=== PATIENT | male | born 1965 | race Caucasian/White ===

== ENCOUNTER 2019-03-25 12:00 | Observation (INO) | payer OTHER ==
[~2019-03-25] VITALS: Ht 175.3 cm; Wt 122.0 kg
[~2019-03-25 12:00] MED LIST: ARNUITY ELLIP100 MCG IH; CRUTCH1 EACH MC; FLEXERIL PO; NORCO 5-325 TA1 EACH PO; PREDNISONE 10 M10 M1 PO; QVAR; TESSALON200 MG PO; VENTOLIN HFA INH8 GM; ZPAK PO
[2019-03-25 16:29] VITALS: BP 157/76
[2019-03-25] MEDS ORDERED: ALEVE220 M1 PO (18:14)
[2019-03-25 19:39] LABS: ABSOLUTE BASOPHILS 0.1 thou/uL (0.0-0.2); ABSOLUTE EOSINOPHILS 0.1 thou/uL (0.0-0.7); ABSOLUTE LYMPHOCYTES 1.3 thou/uL (0.8-5.3); ABSOLUTE MONOCYTES 1.1 thou/uL (0.0-1.2); ABSOLUTE NEUTROPHILS 6.8 thou/uL (1.6-8.1); BASOPHILS 0.9 %; EOSINOPHILS 1.5 %; HEMATOCRIT 40.9 % (42.0-52.0); HEMOGLOBIN 14.1 gm/dL (14.0-18.0); LYMPHOCYTES 13.6 %; MCH 29.6 pg (26.0-34.0); MCHC 34.4 g/dL (28.0-37.0); MCV 85.9 fL (80.0-100.0); MONOCYTES 11.7 %; MPV 10.9 fl. (7.2-11.1); NUCLEATED RBCS 0 /100WBC; PLATELET COUNT* 119 thou/uL (150-400); POLYS 72.3 %; RBC 4.76 mil/uL (4.50-6.00); RDW-CV 13.4 % (10.5-14.5); WBC 9.4 thou/uL (4.0-11.0)
[2019-03-25 19:54] LABS: ALBUMIN 3.7 g/dL (3.4-5.0); CALCIUM 8.7 mg/dL (8.5-10.1); CREATININE 1.2 mg/dL (0.6-1.3); PHOSPHORUS* 3.9 mg/dL (2.5-4.9); TOTAL BILIRUBIN 0.8 mg/dL (<0.1-1.0)
[2019-03-25 20:00] VITALS: BP 130/77
--- NOTE | 2019-03-25 20:08 | NUR ---
PATIENT AWAKE IN BED. PATIENT AMBULATED IN ROOM INDEPEDENTLY. ALL SAFETY MEASURES MAINTAINED. DIFFICULTY PLACING IV CAUSING FLUIDS AND PAIN MEDICATION DELAY. PATIENT DECLINED WARM COMPRESS. PATIENT REPORTS QUIET ENVIROMENT AND RESTING IN BED DID HELP WITH PAIN SLIGHTLY.
[2019-03-26 01:17] LABS: URINE BILIRUBIN NEGATIVE (Negative); URINE BLOOD NEGATIVE (Negative); URINE CLARITY CLEAR; URINE COLOR YELLOW; URINE GLUCOSE-RANDOM NEGATIVE (Negative); URINE KETONES 2+ (Negative); URINE LEUKOCYTES-REFLEX NEGATIVE (Negative); URINE NITRITE-REFLEX NEGATIVE (Negative); URINE PROTEIN NEGATIVE (Negative); URINE UROBILINOGEN 0.2 E.U./dl (0.2-1.0)
--- NOTE | 2019-03-26 07:06 | NUR ---
Alert and oriented x 4. He has had abdominal pain mostly on his left side. His lipase was 2045 at admission. He has NS running at 150mls/hr and he has been up independently. Had pain meds x 1. He has slept.
[2019-03-26 08:00] VITALS: BP 140/91
--- NOTE | 2019-03-26 11:12 | NUR ---
Nutrition: Pt admitted with acute pancreatitis. No N/V/D. Wt: 269#. Labs: lipase 2045, BG ok, alb 3.7. NS @ 150cc. Currently NPO. Will follow per protocol. Mild risk at this time. Hopeful for timely diet advancement and tolerance. F/u 03/29/19.
--- NOTE | 2019-03-26 14:47 | NUR ---
CM ASESSMENT: PT LIVES AT HOME WITH HIS AND SON. PT IS INDEPENDENT WITH ADLS. HE WORKS. HE DENIES NEED FOR DME OR HH. WILL CONTINUE TO FOLLOW IF NEEDED
[2019-03-26 16:22] VITALS: BP 113/67
--- NOTE | 2019-03-26 20:11 | NUR ---
ASSUMED CARE AT 0730. ALERT ORIENTED. PLEASANT COOPERATIVE. HX OF PANCREATITIS DIVERTICULITIS. MEDICATED X 1 FOR LLQ ABDOMINAL PAIN WITH RELIEF STATED. IV INFUSING AT 150CC/HR RT. HAND FOREARM. UP AD JEFF IN ROOM AND HAD CLEAR LIQUIDS AFTER GI SAW PT. HERE THIS AFTERNOON VISITING IN ROOM. HOURLY ROUNDING COMPLETED.
[2019-03-26 21:05] VITALS: BP 125/75
--- NOTE | 2019-03-26 21:05 | NUR ---
RESTING QUIETLY IN BED AND WATCHING TV. DENIES DISCOMFORT. IV FLUIDS INFUSING PER ORDER. CALL LIGHT WITHIN REACH.
[2019-03-27 04:32] LABS: HEMATOCRIT 39.2 % (42.0-52.0); HEMOGLOBIN 13.3 gm/dL (14.0-18.0); MCH 29.4 pg (26.0-34.0); MCHC 33.9 g/dL (28.0-37.0); MCV 86.9 fL (80.0-100.0); MPV 10.7 fl. (7.2-11.1); RBC 4.51 mil/uL (4.50-6.00); RDW-CV 13.4 % (10.5-14.5); WBC 6.9 thou/uL (4.0-11.0)
[2019-03-27 04:51] LABS: ALBUMIN 3.2 g/dL (3.4-5.0); POTASSIUM 4.3 mmol/L (3.5-5.1); TOTAL BILIRUBIN 0.6 mg/dL (<0.1-1.0); TOTAL PROTEIN 6.5 g/dL (6.4-8.2)
--- NOTE | 2019-03-27 05:13 | NUR ---
RESTED QUIETLY. HOURLY ROUNDING IN PROGRESS.
[2019-03-27 08:37] VITALS: BP 128/83
[2019-03-27 10:15] VITALS: BP 128/83
--- NOTE | 2019-03-27 15:27 | NUR ---
ASSUMED CARE OF PT AROUND 0730 THIS AM. REFER TO ASSESSMENT. PT ADVANCED TO HEART HEALTHY DIET FOR LUNCH. TOLERATED ALTHOUGH REPORTS MILD ABDOMINAL PAIN AFTERWARDS. PHYSICIAN NOTIFIED AND STATES TO TAKE TYLENOL AND IBUPROFEN AT HOME FOR MILD ABDOMINAL PAIN. PT OK TO DC HOME WITH ORDERS TO FOLLOW UP WITH GI IN ABOUT TWO WEEKS. NO OTHER CONCERNS AT THIS TIME.
--- NOTE | 2019-03-30 12:24 | CON ---
[address] [address] CONSULTATION Name: CHANTELLE PHILLIP III Room: [address] Sina Lee#: [id number] Admission: 03/25/19 Attend Phys: Jayson Ward Discharge: 03/27/19 Date of : 65 Report #: [id number] THIS REPORT FOR: //name// cc: Rebekah Duarte Maggie M. DO THIS REPORT FOR: //name// CC: Rebekah Ramirez DICTATED BY: Mirella Lanier POLEYARD SUPERVISOR DATE OF SERVICE: 03/26/2019 Please note at the time of this dictation, the patient was seen and physically examined by myself. REASON FOR CONSULTATION: Abdominal pain, pancreatitis and diverticulitis. HISTORY OF PRESENT ILLNESS: This 53-year-old male who presented to the Emergency Room with having a 2-day history after eating a sandwich at lunch earlier in the week, he started developing some left-sided abdominal pain and that he states that the pain got worse after eating. He did go see his PCP the following day and when he did, she ordered a CAT scan and told him to stay at the hospital until that was read and then he was admitted after that due to those findings. The patient denies any alcohol abuse. He has had no recent medications that he has ingested including antibiotics or steroids. He does take an Aleve 1 or 2 once or twice a week. Other than that, his bowels move daily, soft and formed. He states he at least moves once a day, most often twice a day. He has not noticed any bright red blood or melena. However, when his abdominal pain started, he states he did not have a bowel movement like he normally does for the last 2 days. The patient has never had a colonoscopy. ALLERGIES: No known drug allergies. MEDICATIONS: From home are his albuterol inhaler, fluticasone and Aleve. PAST MEDICAL HISTORY: Would have been his asthma. PAST SURGICAL HISTORY: Appendectomy, exploratory laparotomy at age 27. FAMILY HISTORY: Negative for any GI or female cancers. SOCIAL HISTORY: Denies any alcohol, tobacco [place] [address] CONSULTATION Name: CHANTELLE PHILLIP III Room: [address] Sina Lee#: [id number] Admission: 03/25/19 Attend Phys: Jayson Ward Discharge: 03/27/19 Date of : 65 Report #: [id number] REVIEW OF SYSTEMS: Twelve-point review of systems is essentially negative except what is mentioned in the HPI. PHYSICAL EXAMINATION: VITAL SIGNS: Temperature 37.2, pulse 92, respirations 20, blood pressure 130/77. HEART: Regular rate and rhythm. LUNGS: Clear. ABDOMEN: Soft, positive bowel sounds in all 4 quadrants with a very large midline scar noted with left upper and lower quadrant tenderness to palpation. LABORATORY DATA: Hemoglobin 14.1, white count 9.4, and platelets 119. Lipase was 2045. CT showed some moderate stranding at the tail of the pancreas with small fluid lying in the paracolic gutter, small hiatal hernia and questionable diverticulosis, diverticulitis in the descending colon. IMPRESSION: 1. Abdominal pain, both left upper and lower. 2. Pancreatitis. 3. Diverticulitis. 4. New-onset constipation. 5. Thrombocytopenia. PLAN: 1. Increase his fluids to 250 mL an hour. 2. Clear liquids. 3. Continue his antibiotics. 4. MiraLax daily. 5. The patient will need outpatient EUS, colonoscopy for evaluation of his pancreatitis and diverticulitis. Thank you for allowing us to participate in this patient's care. Please do not hesitate to call with any questions in regard to this consult. <ELECTRONICALLY SIGNED> By: Mikael Rollins MD 03/30/19 1224 1230 [id number] Rollins MD /nt
== END 2019-03-27 15:20 | disposition home or self-care (01) ==
LOC: M.CT 12:00 → M.ORTHSURG 15:09
PROVIDERS: ADMIT Internal Medicine
DX: K57.92 Diverticulitis of intestine, part unspecified, without perforation or abscess without bleeding (principal); J45.909 Unspecified asthma, uncomplicated; K59.00 Constipation, unspecified; K85.90 Acute pancreatitis without necrosis or infection, unspecified; Z90.49 Acquired absence of other specified parts of digestive tract; Z98.890 Other specified postprocedural states

== ENCOUNTER → 2019-12-01 | Outpatient (CLI) | payer OTHER ==
[~2019-12-01] MED LIST changes: +ALEVE220 M1 PO
--- NOTE | 2019-12-22 12:57 | SLEEP ---
[address] [address] SLEEP STUDY REPORT Name: CHANTELLE PHILLIP III Room: [facility]#: [id number] Admission: 12/01/19 Attend Phys: Vero Fontana, Discharge: Date of : 65 Report #: [id number] THIS REPORT FOR: //name// CC: Rebekah Fontana This study has been reviewed in its entirety by a board certified sleep specialist DATE OF SERVICE: 12/02/2019 HOME SLEEP STUDY INTERPRETATION: Total duration of the study is 605 minutes. During this time duration, we recorded multiple sleep related respiratory events. These included 101 obstructive apneas in addition to 133 hypopneas with an overall apnea-hypopnea index of 33.2. Body position data indicates the patient was lying on the right side throughout the sleep study. There were also multiple desaturations. Overall, the patient spent over 36 minutes below an O2 saturation of 90%. Mean heart rate was 69. IMPRESSION: Severe obstructive sleep apnea with nocturnal hypoxemia as described above. RECOMMENDATIONS: 1. Recommend proceeding to an in-lab sleep study for positive airway pressure titration. 2. Recommend avoiding driving or other activities requiring vigilance if drowsy. This entire sleep study was reviewed by board certified sleep physician. <ELECTRONICALLY SIGNED> By: Shiraz Mayes MD 12/22/19 1257 [id number] MD franklin Fleming
== END ==
LOC: M.PUL 11:25
PROVIDERS: ATTEND Nurse Practitioner Family
DX: G47.33 Obstructive sleep apnea (adult) (pediatric) (principal); G47.34 Idiopathic sleep related nonobstructive alveolar hypoventilation; J45.20 Mild intermittent asthma, uncomplicated

== ENCOUNTER → 2020-01-25 | Outpatient (CLI) | payer OTHER | LOC: M.SLEEPLAB 20:48 | PROVIDERS: ATTEND Family Medicine | DX: G47.33 Obstructive sleep apnea (adult) (pediatric) (principal) ==